=== PATIENT | female | born 1935 | race Two or more races ===

== ENCOUNTER 2020-09-12 12:02 | Inpatient (IN) | payer OTHER, MEDICAID ==
[~2020-09-12] VITALS: Ht 160 cm; Wt 62.6 kg
[2020-09-12 13:15] LABS: Basophils # (auto) 0.1 10 ^3/uL (0-0.2); Basophils % (auto) 2.2 % (0.0-2.0); Eosinophils # (auto) 0 10 ^3/uL (0-0.8); Eosinophils % (auto) 0.5 % (0.0-7.0); Hematocrit 36.8 % (36.0-46.0); Hemoglobin 12.6 g/dL (12.2-16.2); Lymphocytes % (auto) 19.6 % (10.0-50.0); Mean Corpuscular Hemoglobin 31.2 pg (28.0-32.0); Mean Corpuscular Hgb Conc. 34.1 g/dL (32.0-36.0); Mean Corpuscular Volume 91.3 fL (80.0-100.0); Monocytes # (auto) 0.6 10 ^3/uL (0-1.3); Monocytes % (auto) 10.5 % (0.0-12.0); Neutrophils # (auto) 3.5 10 ^3/uL (1.6-8.6); Neutrophils % (auto) 67.2 % (37.0-80.0); Red Blood Cells 4.03 10^6/uL (4.0-5.20); Red Cell Distribution Width 15.3 % (11.8-14.3); White Blood Cell 5.3 10^3/uL (4.4-10.8)
[2020-09-12 13:29] LABS: Albumin 3.5 g/dL (3.4-5.0); Anion Gap 7 (5-15); Blood Urea Nitrogen 14 mg/dL (7-18); Calcium 9.1 mg/dL (8.5-10.1); Carbon Dioxide 25 mmol/L (21-32); Chloride 101 mmol/L (98-107); Glucose 106 mg/dL (74-106); Sodium 133 mmol/L (136-145)
[2020-09-12] MEDS ORDERED: ONDANSETRON HCL 4 MG/2 ML VIAL IV ONE (13:30)
[2020-09-12] MEDS ORDERED: MORPHINE SULFATE 4 MG/ML SYR/VIAL IV ONE (13:30)
[2020-09-12 13:35] LABS: Alanine Aminotransferase 20 U/L (13-56); Alkaline Phosphatase 80 U/L (45-117); Aspartate Aminotransferase 26 U/L (15-37); BUN/Creatinine Ratio 18.9; Bilirubin, Total 0.4 mg/dL (0.2-1.0); GFR African American 97 mL/min; GFR Non-African American 80 mL/min; Total Protein 7.5 g/dL (6.4-8.2)
[2020-09-12] MEDS ORDERED: HYDROcodone-ACET 5/325MG TAB PO PRN (16:00)
[2020-09-12] MEDS ORDERED: NITROGLYCERIN 0.4 MG SL TAB SL PRN (16:00)
[2020-09-12] MEDS ORDERED: MORPHINE SULF INJ 2 MG/ML SYRINGE 1ML IV PRN (16:00)
[2020-09-12] MEDS ORDERED: ACETAMINOPHEN 325 MG TAB PO PRN (16:00)
[2020-09-12] MEDS ORDERED: PANT40TA2 PO (16:05)
[2020-09-12] MEDS ORDERED: ATOR40TA52 PO (16:05)
[2020-09-12] MEDS ORDERED: NIFE1TAB31 PO (16:05)
[2020-09-12] MEDS ORDERED: DOCU1CAP46 PO (16:05)
[2020-09-12] MEDS ORDERED: ASPI-231 PO (16:05)
[2020-09-12] MEDS ORDERED: CLOPIDOGREL BISULFATE 75 MG TAB PO ONE (21:15)
[2020-09-12 21:35] VITALS: BP 151/64
[2020-09-12 21:40] VITALS: BP 151/64
[2020-09-12] MEDS ORDERED: CLOPIDOGREL 300 MG TAB PO ONE (22:15)
[2020-09-12] MEDS ORDERED: MET25T PO (23:08)
[2020-09-12] MEDS ORDERED: LORA-655 PO (23:08)
[2020-09-13 05:00] VITALS: BP 151/83
[2020-09-13] MEDS: ONDANSETRON HCL 4 MG/2 ML VIAL IV PRN (07:41)
[2020-09-13] MEDS: MORPHINE SULF INJ 2 MG/ML SYRINGE 1ML IV PRN (07:41)
[2020-09-13 09:00] VITALS: BP 161/63
[2020-09-13] MEDS ORDERED: hydrALAZINE HCL 20 MG/ML VL IV PRN (12:45)
[2020-09-13 13:00] VITALS: BP 150/63
[2020-09-13] MEDS: METOPROLOL TARTRATE 50 MG TAB PO SCH ×2 (13:12→21:38)
[2020-09-13] MEDS: ASPirin 81 mg TAB PO SCH (13:12)
[2020-09-13] MEDS: NIFEdipine ER 30 MG TAB PO SCH (13:13)
[2020-09-13 17:00] VITALS: BP 145/64
[2020-09-13] MEDS: ATORVASTATIN 20 MG TAB PO SCH (21:37)
[2020-09-13 22:12] VITALS: BP 131/67
[2020-09-14 05:28] VITALS: BP 140/57
[2020-09-14] MEDS ORDERED: ADENOSINE 51 MG in GIVE UN-DILUTED 0 ML IV STA (08:51)
[2020-09-14 09:00] VITALS: BP 152/67
[2020-09-14 09:23] LABS: Urine Bacteria NONE SEEN /hpf (None Seen); Urine Blood Negative /uL (Negative); Urine WBC <1 /hpf (0 - 5)
[2020-09-14] MEDS: ASPirin 81 mg TAB PO SCH (11:26)
[2020-09-14] MEDS: NIFEdipine ER 30 MG TAB PO SCH (11:27)
[2020-09-14] MEDS: METOPROLOL TARTRATE 50 MG TAB PO SCH ×2 (11:27→21:47)
[2020-09-14 13:00] VITALS: BP 149/70
[2020-09-14 16:52] VITALS: BP 140/53
[2020-09-14] MEDS: ONDANSETRON HCL 4 MG/2 ML VIAL IV PRN (17:05)
[2020-09-14] MEDS: MORPHINE SULF INJ 2 MG/ML SYRINGE 1ML IV PRN (17:05)
[2020-09-14] MEDS ORDERED: LORazepam 0.5 MG TAB PO ONE (17:15)
[2020-09-14 20:00] VITALS: BP 140/65
[2020-09-14 21:44] VITALS: BP 140/65
[2020-09-14] MEDS: ATORVASTATIN 20 MG TAB PO SCH (21:46)
[2020-09-15 04:42] VITALS: BP 130/64
[2020-09-15 06:18] LABS: INR 1.01 (0.9-1.15); Partial Thromboplastin Time 28.6 sec (23.0-31.2)
[2020-09-15 06:19] LABS: Basophils # (auto) 0 10 ^3/uL (0-0.2); Basophils % (auto) 0.6 % (0.0-2.0); Eosinophils # (auto) 0.2 10 ^3/uL (0-0.8); Eosinophils % (auto) 2.4 % (0.0-7.0); Hematocrit 37.2 % (36.0-46.0); Hemoglobin 13.2 g/dL (12.2-16.2); Lymphocytes # (auto) 1.2 10 ^3/uL (0.4-5.4); Lymphocytes % (auto) 17.5 % (10.0-50.0); Mean Corpuscular Hemoglobin 32.3 pg (28.0-32.0); Mean Corpuscular Hgb Conc. 35.5 g/dL (32.0-36.0); Mean Corpuscular Volume 90.8 fL (80.0-100.0); Monocytes # (auto) 0.6 10 ^3/uL (0-1.3); Monocytes % (auto) 8.2 % (0.0-12.0); Neutrophils # (auto) 4.9 10 ^3/uL (1.6-8.6); Neutrophils % (auto) 71.3 % (37.0-80.0); Red Blood Cells 4.09 10^6/uL (4.0-5.20); Red Cell Distribution Width 14.7 % (11.8-14.3); White Blood Cell 6.8 10^3/uL (4.4-10.8)
[2020-09-15 06:36] LABS: Potassium 4.1 mmol/L (3.5-5.1)
[2020-09-15 06:45] LABS: Albumin 3.5 g/dL (3.4-5.0); BUN/Creatinine Ratio 24.7; Bilirubin, Total 0.5 mg/dL (0.2-1.0); Calcium 8.7 mg/dL (8.5-10.1); Total Protein 7.5 g/dL (6.4-8.2)
[2020-09-15] MEDS ORDERED: LIDOCAINE 2%HCL (LOCAL ANESTH.) INJ 20ML MDV ONE (07:15)
[2020-09-15] MEDS ORDERED: IODIXANOL 320MG/ML 100ML BTL IV ONE ×2 (07:15→08:10)
[2020-09-15] MEDS ORDERED: ANGIOMAX 250 MG VIAL IV ONE (08:09)
[2020-09-15] MEDS ORDERED: MIDAZOLAM HCL 1MG/1ML-2 ML VIAL ONE (08:10)
[2020-09-15] MEDS ORDERED: fentaNYL CITRATE 100 MCG/2 ML VL ONE (08:10)
[2020-09-15] MEDS ORDERED: SODIUM CHL 0.9% 50 ML ONE (08:10)
[2020-09-15] MEDS ORDERED: VERAPAMIL 2.5MG/ML INJ 2ML VIAL IV ONE (08:10)
[2020-09-15] MEDS ORDERED: HEPARIN SODIUM (PORCINE) 5000 UNITS/ML 1ML VIAL ONE (08:10)
[2020-09-15] MEDS ORDERED: diphenhdrAMINE HCL 50 MG/1 ML VL ONE (08:14)
[2020-09-15] MEDS ORDERED: ASPirin 81 mg TAB ONE (08:41)
[2020-09-15] MEDS ORDERED: CLOPIDOGREL 300 MG TAB ONE (08:41)
[2020-09-15] MEDS: ASPirin 81 mg TAB PO SCH (09:24)
[2020-09-15] MEDS ORDERED: RANOLAZINE ER 500 MG TAB PO SCH (10:00)
[2020-09-15] MEDS ORDERED: CLOPIDOGREL BISULFATE 75 MG TAB PO SCH (10:00)
[2020-09-15] MEDS: METOPROLOL TARTRATE 50 MG TAB PO SCH (10:13)
[2020-09-15] MEDS: NIFEdipine ER 30 MG TAB PO SCH (10:13)
[2020-09-15 13:01] VITALS: BP 142/54
[2020-09-15] MEDS ORDERED: ASPI-231 PO (15:01)
[2020-09-15] MEDS ORDERED: CLOP75TA28 PO (15:01)
[2020-09-15] MEDS ORDERED: RANO500T PO (15:01)
[2020-09-15 16:52] VITALS: BP 138/52
[2020-09-15 16:56] VITALS: BP 142/54
== END 2020-09-15 18:40 | disposition home health service (06) | DRG 286 ==
LOC: EDBD 12:02 → ER 12:02 → TELE 15:53 → TELE-WESTW 21:34
PROVIDERS: ADMIT Internal Medicine; ATTEND Internal Medicine
PROC: 4A023N7 Measurement of Cardiac Sampling and Pressure, Left Heart, Percutaneous Approach (ICD-10-PCS; principal; 2020-09-15)
PROC: B211YZZ Fluoroscopy of Multiple Coronary Arteries using Other Contrast (ICD-10-PCS; 2020-09-15)
DX: I25.10 Atherosclerotic heart disease of native coronary artery without angina pectoris (principal); I50.23 Acute on chronic systolic (congestive) heart failure; I11.0 Hypertensive heart disease with heart failure; I44.7 Left bundle-branch block, unspecified; K21.9 Gastro-esophageal reflux disease without esophagitis; Z20.822 Contact with and (suspected) exposure to COVID-19; E78.5 Hyperlipidemia, unspecified; F41.9 Anxiety disorder, unspecified; Z82.49 Family history of ischemic heart disease and other diseases of the circulatory system; Z79.899 Other long term (current) drug therapy
CPT/HCPCS: 36415; 71045; 78452; 80053; 81001; 83880; 84484; 85025; 85049; 85610; 85730; 87426; 93005; 93017; 93306; 93458; 96374; 96375; 99152; 99153; G0378; J0153; J2250; J2405; Q9967

== ENCOUNTER 2021-01-03 09:34 | Inpatient (IN) | payer OTHER, MEDICAID ==
[~2021-01-03] VITALS: Ht 157.5 cm; Wt 80.9 kg
[~2021-01-03 09:34] MED LIST: ASPI1TAB20 PO; ATOR40TA52 PO; CLOP75TA28 PO; DOCU1CAP46 PO; LORA-655 PO; MET25T PO; NIFE1TAB31 PO; PANT40TA2 PO; RANO500T PO
[2021-01-03 10:43] LABS: Basophils # (auto) 0.1 10 ^3/uL (0-0.2); Eosinophils # (auto) 0 10 ^3/uL (0-0.8); Eosinophils % (auto) 0.7 % (0.0-7.0); Hematocrit 38.4 % (36.0-46.0); Hemoglobin 13.3 g/dL (12.2-16.2); Lymphocytes # (auto) 1.2 10 ^3/uL (0.4-5.4); Lymphocytes % (auto) 21.8 % (10.0-50.0); Mean Corpuscular Hgb Conc. 34.6 g/dL (32.0-36.0); Mean Corpuscular Volume 92.5 fL (80.0-100.0); Monocytes # (auto) 0.5 10 ^3/uL (0-1.3); Monocytes % (auto) 9.3 % (0.0-12.0); Neutrophils # (auto) 3.6 10 ^3/uL (1.6-8.6); Neutrophils % (auto) 67.2 % (37.0-80.0); Nucleated Red Blood Cells % 0.1 %; Red Blood Cells 4.15 10^6/uL (4.0-5.20); Red Cell Distribution Width 14.7 % (11.8-14.3); White Blood Cell 5.4 10^3/uL (4.4-10.8)
[2021-01-03 10:56] LABS: Albumin 3.6 g/dL (3.4-5.0); Anion Gap 6 (5-15); Calcium 9.7 mg/dL (8.5-10.1); Carbon Dioxide 24 mmol/L (21-32); Chloride 103 mmol/L (98-107); Glucose 124 mg/dL (74-106); Potassium 3.9 mmol/L (3.5-5.1); Sodium 133 mmol/L (136-145)
[2021-01-03 11:05] LABS: Alanine Aminotransferase 23 U/L (13-56); Alkaline Phosphatase 77 U/L (45-117); Aspartate Aminotransferase 20 U/L (15-37); BUN/Creatinine Ratio 14.6; Bilirubin, Total 0.3 mg/dL (0.2-1.0); Blood Urea Nitrogen 12 mg/dL (7-18); GFR African American 86 mL/min; GFR Non-African American 71 mL/min
[2021-01-03 11:21] LABS: Urine Bacteria NONE SEEN /hpf (None Seen); Urine Blood Negative /uL (Negative); Urine Specific Gravity 1.007 (1.001-1.035); Urine WBC 3 /hpf (0 - 5)
[2021-01-03] MEDS ORDERED: NITR-87 PO (14:44)
[2021-01-03] MEDS ORDERED: cefTRIAXone 1GM/50ML D5W 50 ML IV ONE (14:45)
[2021-01-03] MEDS ORDERED: ACETAMINOPHEN 325 MG TAB PO PRN (19:45)
[2021-01-03] MEDS ORDERED: TEMAZEPAM 15 MG CAP PO PRN (19:45)
[2021-01-03] MEDS ORDERED: NITROGLYCERIN 0.4 MG SL TAB SL PRN (19:45)
[2021-01-03] MEDS ORDERED: MORPHINE SULFATE INJECTION 2 MG/ML SYRG IV PRN ×2 (19:45)
[2021-01-03] MEDS ORDERED: HYDROcodone-ACET 5/325MG TAB PO PRN (19:45)
[2021-01-03] MEDS ORDERED: ALUM & MAG HYDROX-SIMETH LIQ(MAALOX) 30 ML PO PRN (19:45)
[2021-01-03] MEDS ORDERED: METOCLOPRAMIDE HCL 5MG/ml INJ 2ml VIAL IV PRN (19:45)
[2021-01-03 20:16] LABS: Basophils # (auto) 0 10 ^3/uL (0-0.2); Basophils % (auto) 0.7 % (0.0-2.0); Eosinophils # (auto) 0.1 10 ^3/uL (0-0.8); Eosinophils % (auto) 1.2 % (0.0-7.0); Hematocrit 38.8 % (36.0-46.0); Hemoglobin 13.2 g/dL (12.2-16.2); Lymphocytes # (auto) 1.6 10 ^3/uL (0.4-5.4); Lymphocytes % (auto) 28.6 % (10.0-50.0); Mean Corpuscular Hemoglobin 31.2 pg (28.0-32.0); Mean Corpuscular Volume 91.7 fL (80.0-100.0); Monocytes # (auto) 0.6 10 ^3/uL (0-1.3); Monocytes % (auto) 10.7 % (0.0-12.0); Neutrophils # (auto) 3.2 10 ^3/uL (1.6-8.6); Neutrophils % (auto) 58.8 % (37.0-80.0); Nucleated Red Blood Cells % 0.1 %; Red Blood Cells 4.23 10^6/uL (4.0-5.20); Red Cell Distribution Width 14.2 % (11.8-14.3); White Blood Cell 5.5 10^3/uL (4.4-10.8)
[2021-01-03 20:31] LABS: INR 1.05 (0.9-1.15); Partial Thromboplastin Time 28.1 sec (23.6-33.0)
[2021-01-03] MEDS ORDERED: HEPARIN SODIUM (PORCINE) 5000 UNITS/ML 1ML VIAL IV ONE (20:45)
[2021-01-03] MEDS ORDERED: ASPirin 81 mg TAB PO ONE (20:45)
[2021-01-03] MEDS ORDERED: HEPARIN DRIP/D5W 100UNITS/ML 250 ML IV SCH (20:45)
[2021-01-03] MEDS ORDERED: ATORVASTATIN 20 MG TAB PO ONE (20:45)
[2021-01-03] MEDS: SODIUM CHLOR 0.9% PF (SALINE LOCK) 10ML VIAL/SYR IV SCH (22:04)
[2021-01-04 05:00] VITALS: BP 156/71
[2021-01-04] MEDS: SODIUM CHLOR 0.9% PF (SALINE LOCK) 10ML VIAL/SYR IV SCH ×3 (06:00→21:51)
[2021-01-04] MEDS ORDERED: HEPARIN DRIP/D5W 100UNITS/ML 250 ML IV SCH (08:30)
[2021-01-04 09:01] VITALS: BP 159/97
[2021-01-04] MEDS ORDERED: POTASSIUM EFFERVESENT TAB 25 MEQ PO ONE (10:30)
[2021-01-04 10:32] LABS: Basophils # (auto) 0 10 ^3/uL (0-0.2); Eosinophils # (auto) 0.1 10 ^3/uL (0-0.8); Hematocrit 37.3 % (36.0-46.0); Hemoglobin 12.5 g/dL (12.2-16.2); Lymphocytes # (auto) 1.3 10 ^3/uL (0.4-5.4); Lymphocytes % (auto) 27.7 % (10.0-50.0); Mean Corpuscular Hemoglobin 30.7 pg (28.0-32.0); Mean Corpuscular Hgb Conc. 33.5 g/dL (32.0-36.0); Mean Corpuscular Volume 91.8 fL (80.0-100.0); Monocytes # (auto) 0.7 10 ^3/uL (0-1.3); Neutrophils # (auto) 2.6 10 ^3/uL (1.6-8.6); Neutrophils % (auto) 55.3 % (37.0-80.0); Red Blood Cells 4.07 10^6/uL (4.0-5.20); Red Cell Distribution Width 14.5 % (11.8-14.3); White Blood Cell 4.7 10^3/uL (4.4-10.8)
[2021-01-04 10:44] LABS: Anion Gap 6 (5-15); Blood Urea Nitrogen 13 mg/dL (7-18); Calcium 8.9 mg/dL (8.5-10.1); Carbon Dioxide 25 mmol/L (21-32); Chloride 103 mmol/L (98-107); Glucose 100 mg/dL (74-106); Magnesium 2.4 mg/dL (1.6-2.6); Potassium 4.1 mmol/L (3.5-5.1); Sodium 134 mmol/L (136-145)
[2021-01-04 10:49] LABS: BUN/Creatinine Ratio 16.9; GFR African American 92 mL/min; GFR Non-African American 76 mL/min
[2021-01-04] MEDS ORDERED: CARVEDILOL 3.125 MG TAB PO ONE (11:00)
[2021-01-04] MEDS ORDERED: NIFEdipine 10 MG CAP PO ONE (11:00)
[2021-01-04 11:07] LABS: INR 1.05 (0.9-1.15)
[2021-01-04 11:18] LABS: Partial Thromboplastin Time 74.7 sec (23.6-33.0)
[2021-01-04 13:00] VITALS: BP 159/68
[2021-01-04 16:41] VITALS: BP 134/72
[2021-01-04] MEDS: CARVEDILOL 3.125 MG TAB PO SCH (21:51)
[2021-01-04 22:00] VITALS: BP 153/72
[2021-01-05 01:17] LABS: INR 1.04 (0.9-1.15); Partial Thromboplastin Time 27.6 sec (23.6-33.0)
[2021-01-05 05:00] VITALS: BP 141/52
[2021-01-05] MEDS: SODIUM CHLOR 0.9% PF (SALINE LOCK) 10ML VIAL/SYR IV SCH ×3 (05:43→21:38)
[2021-01-05] MEDS ORDERED: ATROPINE SULF 0.5 MG/5ML SYR ONE (08:11)
[2021-01-05] MEDS ORDERED: DOBUTamine 1000MCG/ML 250 ML IV ONE (08:11)
[2021-01-05] MEDS ORDERED: DOBUTamine 1000MCG/ML 100 ML IV ONE (08:15)
[2021-01-05 08:26] VITALS: BP 167/83
[2021-01-05] MEDS ORDERED: IOHEXOL 350 MG/ML 100ML IJ ONE (08:32)
[2021-01-05] MEDS: NIFEdipine 10 MG CAP PO SCH (11:10)
[2021-01-05] MEDS: CARVEDILOL 3.125 MG TAB PO SCH ×2 (11:10→21:38)
[2021-01-05] MEDS: PANTOPRAZOLE 40 MG TAB PO SCH (11:11)
[2021-01-05 11:56] LABS: Basophils # (auto) 0 10 ^3/uL (0-0.2); Basophils % (auto) 0.7 % (0.0-2.0); Eosinophils # (auto) 0.1 10 ^3/uL (0-0.8); Eosinophils % (auto) 1.5 % (0.0-7.0); Hematocrit 38.8 % (36.0-46.0); Lymphocytes # (auto) 1.3 10 ^3/uL (0.4-5.4); Lymphocytes % (auto) 20.5 % (10.0-50.0); Mean Corpuscular Hemoglobin 30.9 pg (28.0-32.0); Mean Corpuscular Hgb Conc. 33.5 g/dL (32.0-36.0); Mean Corpuscular Volume 92.2 fL (80.0-100.0); Monocytes # (auto) 0.5 10 ^3/uL (0-1.3); Monocytes % (auto) 8.4 % (0.0-12.0); Neutrophils # (auto) 4.4 10 ^3/uL (1.6-8.6); Neutrophils % (auto) 68.9 % (37.0-80.0); Nucleated Red Blood Cells % 0.1 %; Red Cell Distribution Width 14.3 % (11.8-14.3); White Blood Cell 6.4 10^3/uL (4.4-10.8)
[2021-01-05 12:02] LABS: INR 1.05 (0.9-1.15); Partial Thromboplastin Time 27.9 sec (23.6-33.0)
[2021-01-05 13:00] VITALS: BP 129/66
[2021-01-05] MEDS ORDERED: DOCUSATE SOD 100 MG CAP PO PRN (15:45)
[2021-01-05] MEDS ORDERED: POLYETHYLENE GLYCOL 17 GM PWDR PO PRN (15:45)
[2021-01-05] MEDS: Ensure HIGH Protein Chocolate 8oz Bottle PO SCH (16:48)
[2021-01-05 17:00] VITALS: BP 131/65
[2021-01-05 22:00] VITALS: BP_SYST 126; BP_SYST 137; BP_DIAS 57; BP_DIAS 60
[2021-01-06 05:10] VITALS: BP 146/69
[2021-01-06] MEDS: SODIUM CHLOR 0.9% PF (SALINE LOCK) 10ML VIAL/SYR IV SCH (05:29)
[2021-01-06] MEDS: CARVEDILOL 3.125 MG TAB PO SCH (08:09)
[2021-01-06] MEDS: Ensure HIGH Protein Chocolate 8oz Bottle PO SCH (08:09)
[2021-01-06] MEDS: PANTOPRAZOLE 40 MG TAB PO SCH (08:09)
[2021-01-06 09:26] VITALS: BP 158/82
[2021-01-06] MEDS: NIFEdipine 10 MG CAP PO SCH (09:45)
[2021-01-06 12:39] VITALS: BP 158/82
[2021-01-06 13:05] VITALS: BP 100/52
== END 2021-01-06 13:15 | disposition home or self-care (01) | DRG 73 ==
LOC: ER 09:34 → EDBD 09:34 → TELE 19:32 → TELE-WESTW 01-04 04:13
PROVIDERS: ADMIT Internal Medicine; ATTEND Internal Medicine
DX: G90.8 Other disorders of autonomic nervous system (principal); I21.4 Non-ST elevation (NSTEMI) myocardial infarction; I50.22 Chronic systolic (congestive) heart failure; I35.0 Nonrheumatic aortic (valve) stenosis; R55 Syncope and collapse; K21.9 Gastro-esophageal reflux disease without esophagitis; I11.0 Hypertensive heart disease with heart failure; E78.5 Hyperlipidemia, unspecified; F41.9 Anxiety disorder, unspecified; Z20.822 Contact with and (suspected) exposure to COVID-19; I25.10 Atherosclerotic heart disease of native coronary artery without angina pectoris; R73.03 Prediabetes; Z79.02 Long term (current) use of antithrombotics/antiplatelets; Z79.82 Long term (current) use of aspirin; Z79.899 Other long term (current) drug therapy; Z82.49 Family history of ischemic heart disease and other diseases of the circulatory system
CPT/HCPCS: 36415; 70450; 71045; 71275; 80048; 80053; 81001; 82306; 83036; 83735; 83880; 84439; 84443; 84484; 85025; 85610; 85730; 87426; 93005; 93017; 93306; 93350; 96365; 96375; 97110; 97116; 97163; 97530; G0378; J0461; J0696